=== PATIENT | female | born 1940 | race Caucasian/White ===

== ENCOUNTER → 2018-06-24 09:22 | Outpatient (BNVA) | payer MEDICARE, SELFPAY | PROVIDERS: PCP Nurse Practitioner Family; Visit Provider Psychiatry & Neurology Neurology | DX: R41.3 Other amnesia (principal); G20 Parkinson's disease; I10 Essential (primary) hypertension | CPT/HCPCS: 99214 ==

== ENCOUNTER → 2018-07-19 13:32 | Outpatient (BNVA) | payer MEDICARE, SELFPAY | PROVIDERS: PCP Nurse Practitioner Family; Visit Provider Nurse Practitioner Gerontology | DX: N39.498 Other specified urinary incontinence (principal); Z87.440 Personal history of urinary (tract) infections | CPT/HCPCS: 99213 ==

== ENCOUNTER → 2018-11-24 09:13 | Outpatient (BNVA) | payer MEDICARE, MEDICAID, SELFPAY | PROVIDERS: PCP Nurse Practitioner Family; Visit Provider Psychiatry & Neurology Neurology | DX: G20 Parkinson's disease (principal); R41.3 Other amnesia; I10 Essential (primary) hypertension | CPT/HCPCS: 99214 ==

== ENCOUNTER → 2019-02-24 10:35 | Outpatient (BNVA) | payer MEDICARE, MEDICAID, SELFPAY | PROVIDERS: PCP Nurse Practitioner Family; Visit Provider Psychiatry & Neurology Neurology | DX: G20 Parkinson's disease (principal); N39.0 Urinary tract infection, site not specified; L98.9 Disorder of the skin and subcutaneous tissue, unspecified; D22.9 Melanocytic nevi, unspecified; Z80.8 Family history of malignant neoplasm of other organs or systems | CPT/HCPCS: 99214 ==

== ENCOUNTER 2019-04-01 13:55 | Outpatient (REF) | payer MEDICARE, MEDICAID, SELFPAY ==
[2019-04-01 14:14] LABS: HCT 43.5 % (36.0-46.0); HGB 14.6 g/dL (12.0-15.5); Mean Corp. HGB Concentration 33.6 g/dL (32.0-36.0); Mean Corpuscular Hemoglobin 31.6 pg (27.0-33.0); Mean Corpuscular Volume 94.2 fL (80-95); Mean Platelet Volume 12.4 fL (8.0-11.0); Platelet Count 270 x1000/uL (130-400); RBC 4.62 m/cumm (4.00-5.20); RBC Distribution Width 12.8 % (11.7-14.6); White Blood Cell Count 6.84 k/cumm (4.4-10.8)
[2019-04-01 14:34] LABS: Iron 77 ug/dL (50-175); Total Iron Binding Capacity 313 ug/dL (250-450); Transferrin Sat 25 % (15-50)
[2019-04-01 23:39] LABS: Anion Gap 9.2 mmol/L (3-11); BUN 14 mg/dL (7-18); CO2 26.8 mmol/L (21.0-32.0); CREATININE 0.72 mg/dL (0.55-1.02); Calcium 9.4 mg/dL (8.5-10.1); Chloride 104 mmol/L (98-107); Glucose 132 mg/dL (70-100); Sodium 140 mmol/L (136-145); TSH (W/Ref FT4) 2.84 uIU/mL (0.358-3.74)
[2019-04-04 12:51] LABS: Lyme Ab w Rflx to Lyme Confirm Negative
[2019-04-04 12:53] LABS: Vitamin D 25 Total 14.1 ng/ml (30-100)
== END 2019-04-01 14:15 ==
LOC: NCHCN 13:55
PROVIDERS: PCP Nurse Practitioner Family; Visit Provider Nurse Practitioner Family
DX: I10 Essential (primary) hypertension (principal); R53.83 Other fatigue; E55.9 Vitamin D deficiency, unspecified; Z86.39 Personal history of other endocrine, nutritional and metabolic disease
CPT/HCPCS: 80048; 82306; 85027; 83540; 83550; 84443; 86618

== ENCOUNTER → 2019-05-23 12:41 | Outpatient (BNVA) | payer MEDICARE, MEDICAID, SELFPAY | PROVIDERS: PCP Nurse Practitioner Family; Visit Provider Psychiatry & Neurology Neurology | DX: G20 Parkinson's disease (principal); N39.0 Urinary tract infection, site not specified; D22.9 Melanocytic nevi, unspecified; R41.3 Other amnesia; K59.00 Constipation, unspecified; I10 Essential (primary) hypertension | CPT/HCPCS: 99213 ==

== ENCOUNTER → 2019-07-19 13:12 | Outpatient (BNVA) | payer MEDICARE, MEDICAID, SELFPAY | PROVIDERS: PCP Nurse Practitioner Family; Referring Provider Nurse Practitioner Family; Visit Provider Nurse Practitioner Gerontology | DX: Z87.440 Personal history of urinary (tract) infections (principal); R32 Unspecified urinary incontinence | CPT/HCPCS: 99213 ==

== ENCOUNTER → 2019-08-18 12:37 | Outpatient (BNVA) | payer MEDICARE, MEDICAID, SELFPAY | PROVIDERS: PCP Nurse Practitioner Family; Referring Provider Nurse Practitioner Family; Visit Provider Psychiatry & Neurology Neurology | DX: G20 Parkinson's disease (principal); N39.0 Urinary tract infection, site not specified; D22.9 Melanocytic nevi, unspecified; R41.3 Other amnesia | CPT/HCPCS: 99214 ==

== ENCOUNTER → 2019-09-19 15:03 | Outpatient (BNVA) | payer MEDICARE, MEDICAID, SELFPAY | PROVIDERS: PCP Nurse Practitioner Family; Referring Provider Nurse Practitioner Family; Visit Provider Nurse Practitioner Gerontology | DX: R32 Unspecified urinary incontinence (principal) | CPT/HCPCS: 99213 ==

== ENCOUNTER 2019-10-19 15:31 | Outpatient (CLI) | payer MEDICARE, MEDICAID, SELFPAY ==
--- NOTE | 2019-10-19 13:37 | DI.RAD_ITS ---
EXAM: XR SHOULDER LT COMPLETE 2+V INDICATION: Pain. COMPARISON: No exams were available for comparison TECHNIQUE: 2D digital imaging was performed. FINDINGS: There are degenerative changes seen at the acromioclavicular joint and the greater tuberosity. The g lenohumeral joint appears well maintained. The bones are intact and normally mineralized. Soft tiss ues are unremarkable. The bones appear osteopenic. IMPRESSION: Degenerative changes of the left shoulder.
== END 2019-10-19 15:51 ==
PROVIDERS: PCP Nurse Practitioner Family; Referring Provider Nurse Practitioner Family; Visit Provider Student in an Organized Health Care Education/Training Program
DX: M25.512 Pain in left shoulder (principal); M19.012 Primary osteoarthritis, left shoulder; M85.88 Other specified disorders of bone density and structure, other site; S46.012A Strain of muscle(s) and tendon(s) of the rotator cuff of left shoulder, initial encounter; M75.02 Adhesive capsulitis of left shoulder; W18.30XA Fall on same level, unspecified, initial encounter; I10 Essential (primary) hypertension; G20 Parkinson's disease
CPT/HCPCS: 99204; 99214; 73030

== ENCOUNTER → 2019-10-25 14:32 | Outpatient (BNVA) | payer MEDICARE, MEDICAID, SELFPAY | PROVIDERS: PCP Nurse Practitioner Family; Referring Provider Nurse Practitioner Family; Visit Provider Psychiatry & Neurology Neurology | DX: G20 Parkinson's disease (principal); R41.3 Other amnesia; I10 Essential (primary) hypertension | CPT/HCPCS: 99213 ==

== ENCOUNTER 2019-10-26 01:17 | Outpatient (CLI) | payer MEDICARE, MEDICAID, SELFPAY ==
--- NOTE | 2019-10-26 15:10 | DI.MRI_ITS ---
EXAM: MR UPPER JOINT LT WO CLINICAL HISTORY: Acute traumatic shoulder pain, weakness, stiffness, adhesive capsulitis,S46.012A,M 75.02 TECHNIQUE: Multiplanar multisequence MRI was performed. COMPARISON: XR SHOULDER LT COMPLETE 2+V from 10/19/2019 XR SHOULDER LT COMPLETE 2+V from 10/19/2019 FINDINGS: Supraspinatus tendon: There is a complete tear with retraction to the level of the glenohumeral joint . Infraspinatus tendon: There is a complete tear with retraction to the level of the glenohumeral joint . Teres minor tendon: Intact. Subscapularis tendon: There is thickening and increased signal seen within the subscapularis tendon s uggesting a partial tear. Biceps tendon: There is thickening and increased signal seen within the biceps tendon at the level of the anchor. This may represent a partial tear and/or tendinosis. Glenoid labrum: There is hyperintense signal beneath the anterior superior labrum suspicious for tear . Glenohumeral joint: There is a curvilinear, 8 mm., Hypointense focus in the anterior joint space. Th is may represent a displaced fracture fragment. A CT scan of the shoulder should be considered for f urther evaluation. Bones: Degenerative signal changes are seen at the acromioclavicular joint and the greater tuberosity . Soft tissues: There is fluid seen in the subcoracoid, subacromial and subdeltoid bursa. No soft tiss ue my is appreciated. Muscles: Moderately severe fatty atrophy is seen of the infraspinatus muscle. There is jdaq-oz-bwmbo ate fatty atrophy seen of the supraspinatus and teres minor muscles. Coracoclavicular ligaments: Intact. IMPRESSION: 1. Complete tears of both the supraspinatus and infraspinatus tendons with retraction. 2. Findings suspicious for tear/tendinosis of the subscapularis and biceps tendon as described above. 3. Findings suspicious for a tear of the superior labrum. 4. 8 mm focus in the anterior joint space. This may represent a displaced fracture fragment. CT scan should be considered for further evaluation. 5. Fatty atrophy involving supraspinatus, infraspinatus and teres minor muscles. 6. Degenerative changes in the shoulder.
== END 2019-10-26 01:37 ==
PROVIDERS: PCP Nurse Practitioner Family; Visit Provider Student in an Organized Health Care Education/Training Program
DX: M25.512 Pain in left shoulder (principal); M75.02 Adhesive capsulitis of left shoulder; S46.012A Strain of muscle(s) and tendon(s) of the rotator cuff of left shoulder, initial encounter; M75.102 Unspecified rotator cuff tear or rupture of left shoulder, not specified as traumatic; S43.432A Superior glenoid labrum lesion of left shoulder, initial encounter; M19.012 Primary osteoarthritis, left shoulder
CPT/HCPCS: 73221

== ENCOUNTER → 2020-01-25 07:47 | Outpatient (BNVA) | payer MEDICARE, MEDICAID, SELFPAY | PROVIDERS: PCP Nurse Practitioner Family; Referring Provider Nurse Practitioner Family; Visit Provider Psychiatry & Neurology Neurology | DX: G20 Parkinson's disease (principal); R41.3 Other amnesia; R39.15 Urgency of urination | CPT/HCPCS: 99213; 99441 ==

== ENCOUNTER → 2020-02-28 13:30 | Outpatient (BNVA) | payer MEDICARE, MEDICAID, SELFPAY | PROVIDERS: PCP Nurse Practitioner Family; Referring Provider Nurse Practitioner Family; Visit Provider Nurse Practitioner Gerontology | DX: R32 Unspecified urinary incontinence (principal) | CPT/HCPCS: 99213 ==

== ENCOUNTER 2020-04-05 12:49 | Outpatient (REF) | payer MEDICARE, MEDICAID, SELFPAY ==
[2020-04-05 15:53] LABS: ALT 17 U/L (14-59); AST 18 U/L (15-37); Albumin 3.8 g/dL (3.4-5.0); Alkaline Phosphatase 58 U/L (46-116); Anion Gap 9.6 mmol/L (3-11); BUN 22 mg/dL (7-18); Bilirubin, Total 0.7 mg/dL (0.2-1.0); CO2 26.4 mmol/L (21.0-32.0); CREATININE 0.82 mg/dL (0.55-1.02); Calcium 9.3 mg/dL (8.5-10.1); Chloride 105 mmol/L (98-107); Glucose 131 mg/dL (74-106); Potassium 3.9 mmol/L (3.5-5.1); Sodium 141 mmol/L (136-145); Total Protein 6.8 g/dL (6.4-8.2)
== END 2020-04-05 13:09 ==
LOC: NCHCN 12:49
PROVIDERS: PCP Nurse Practitioner Family; Visit Provider Nurse Practitioner
DX: G20 Parkinson's disease (principal); F03.90 Unspecified dementia, unspecified severity, without behavioral disturbance, psychotic disturbance, mood disturbance, and anxiety
CPT/HCPCS: 80053

== ENCOUNTER → 2020-04-25 09:19 | Outpatient (BNVA) | payer MEDICARE, MEDICAID, SELFPAY | PROVIDERS: PCP Nurse Practitioner Family; Referring Provider Nurse Practitioner Family; Visit Provider Psychiatry & Neurology Neurology | DX: G20 Parkinson's disease (principal); R41.3 Other amnesia; R39.15 Urgency of urination; I10 Essential (primary) hypertension | CPT/HCPCS: 99213; 99441 ==

== ENCOUNTER → 2020-07-18 15:06 | Outpatient (BNVA) | payer MEDICARE, MEDICAID, SELFPAY | PROVIDERS: PCP Nurse Practitioner Family; Referring Provider Nurse Practitioner Family; Visit Provider Nurse Practitioner Gerontology | DX: R32 Unspecified urinary incontinence (principal); I10 Essential (primary) hypertension; G20 Parkinson's disease | CPT/HCPCS: 99213 ==

== ENCOUNTER → 2020-07-26 10:15 | Outpatient (BNVA) | payer MEDICARE, MEDICAID, SELFPAY | PROVIDERS: PCP Nurse Practitioner Family; Referring Provider Nurse Practitioner Family; Visit Provider Psychiatry & Neurology Neurology | DX: G20 Parkinson's disease (principal); R41.3 Other amnesia; I10 Essential (primary) hypertension | CPT/HCPCS: 99214 ==

== ENCOUNTER → 2020-10-17 07:52 | Outpatient (BNVA) | payer MEDICARE, MEDICAID, SELFPAY | PROVIDERS: PCP Nurse Practitioner Family; Referring Provider Nurse Practitioner Family; Visit Provider Psychiatry & Neurology Neurology | DX: G20 Parkinson's disease (principal); R41.3 Other amnesia; F03.91 Unspecified dementia, unspecified severity, with behavioral disturbance | CPT/HCPCS: 99213 ==

== ENCOUNTER → 2020-11-14 07:57 | Outpatient (BNVA) | payer MEDICARE, MEDICAID, SELFPAY | PROVIDERS: PCP Nurse Practitioner Family; Referring Provider Nurse Practitioner Family; Visit Provider Psychiatry & Neurology Neurology | DX: G20 Parkinson's disease (principal); F03.91 Unspecified dementia, unspecified severity, with behavioral disturbance; R32 Unspecified urinary incontinence | CPT/HCPCS: 99212 ==

== ENCOUNTER → 2020-12-18 07:22 | Outpatient (BNVA) | payer MEDICARE, MEDICAID, SELFPAY | PROVIDERS: PCP Nurse Practitioner Family; Referring Provider Nurse Practitioner Family; Visit Provider Psychiatry & Neurology Neurology | DX: G20 Parkinson's disease (principal); F03.91 Unspecified dementia, unspecified severity, with behavioral disturbance; R32 Unspecified urinary incontinence | CPT/HCPCS: 99213 ==

== ENCOUNTER → 2021-01-31 07:47 | Outpatient (BNVA) | payer MEDICARE, MEDICAID, SELFPAY | PROVIDERS: PCP Nurse Practitioner Family; Referring Provider Nurse Practitioner Family; Visit Provider Psychiatry & Neurology Neurology | DX: G20 Parkinson's disease (principal); F03.91 Unspecified dementia, unspecified severity, with behavioral disturbance; R32 Unspecified urinary incontinence; Z79.899 Other long term (current) drug therapy | CPT/HCPCS: 99442 ==

== ENCOUNTER 2021-02-20 12:39 | Outpatient (REF) | payer OTHER, MEDICAID, SELFPAY ==
[2021-02-20 12:58] LABS: Bilirubin Negative (Negative); Blood Negative (Negative); Clarity Clear (Clear); Glucose Negative (Negative); Ketones Negative (Negative); Leukocyte Esterase Negative (Negative); Nitrite Negative (Negative); Urobilinogen 0.2 EU/dL (Up TO 0.2)
== END 2021-02-20 12:40 | disposition home or self-care (01) ==
LOC: LBN 12:39
PROVIDERS: PCP Nurse Practitioner Family; Visit Provider Psychiatry & Neurology Neurology
DX: R30.0 Dysuria (principal)
CPT/HCPCS: 81003

== ENCOUNTER 2021-02-25 18:42 | Outpatient (CLI) | payer OTHER, MEDICAID, SELFPAY ==
--- NOTE | 2021-02-22 | DI.RAD_ITS ---
Exam(s) XR KNEE LT 3V AP,LAT,SWATI EXAM: XR KNEE LT 3V AP,LAT,SWATI CLINICAL HISTORY: LT KNEE PAIN, M25.562 TECHNIQUE: COMPARISON: No exams were available for comparison FINDINGS: Four views were obtained. There are very prominent hypertrophic degenerative changes of the joints o f the knee. There is severe narrowing of the cartilaginous joint space of the patellofemoral joint l aterally, and also of the medial tibiofemoral joint. There is medial subluxation of the femur on the tibia. There is lateral subluxation of the patella. There is an apparent nondisplaced fracture of the proximal fibula involving the proximal diaphysis. IMPRESSION: Severe degenerative changes, nondisplaced proximal diaphyseal fibular fracture. RADIATION DOSE DELIVERED: Total DLP
--- NOTE | 2021-02-22 | DI.RAD_ITS ---
Exam(s) XR FOOT LT COMPLETE EXAM: XR FOOT LT COMPLETE CLINICAL HISTORY: LT FOOT PAIN, M79.672 TECHNIQUE: COMPARISON: No exams were available for comparison FINDINGS: Three views of the foot were obtained. There are degenerative changes involving essentially all the joints of the foot. Fracture of the distal fibula noted with mild displacement. Additionally, there is lucency and deformity of the base of the 2nd metatarsal as well as probably the 3rd and 4th metat arsals raising the possibility of multiple metatarsal fractures. Additional evaluation with CT recom mended to evaluate midfoot injury. IMPRESSION: RADIATION DOSE DELIVERED: Total DLP
--- NOTE | 2021-02-22 | DI.RAD_ITS ---
Exam(s) XR TIB/FIB LT XR ANKLE LT COMPLETE EXAM: XR TIB/FIB LT CLINICAL HISTORY: LT LEG PAIN, M79.605 TECHNIQUE: COMPARISON: CR XR ANKLE LT COMPLETE from 02/22/2021 FINDINGS: Two views of the leg and three views of the ankle were obtained. There is a nondisplaced proximal fi bular diaphyseal fracture. There is a fracture of the distal fibula with mild displacement. The ank le mortise appears well maintained. The posterior aspect of the tibia is not well visualized but no definite fracture of the tibia is identified. IMPRESSION: RADIATION DOSE DELIVERED: Total DLP
--- NOTE | 2021-02-22 | DI.US_ITS ---
Exam(s) US LOWER EXTREMITY VENOUS LT EXAM: US LOWER EXTREMITY VENOUS LT CLINICAL HISTORY: LT CALF PAIN, M79.652. TECHNIQUE: Ultrasound performed using standard protocol. COMPARISON: No exams were available for comparison FINDINGS: Duplex venous ultrasound was performed according to the usual protocol. The deep veins are freely com pressible throughout and there is normal flow augmentation with manual calf compression. 2D and Doppl er evaluation are unremarkable. IMPRESSION: No evidence of deep venous thrombosis of the left lower extremity. DATA REPOSITORY:
--- NOTE | 2021-02-22 13:30 | DI.CT_ITS ---
Exam(s) CT LOWER EXTREMITY LT WO EXAM: CT LOWER EXTREMITY LT WO CLINICAL HISTORY: LT FOOT PAIN, M79.672 TECHNIQUE: COMPARISON: No exams were available for comparison FINDINGS: CT examination of the foot was performed utilizing multi slice acquisition multi planar reconstructio n. Today's radiographs showed fractures of proximal and distal fibula and suspected fractures of the bases of the 2nd through 4th metatarsals. CT again shows the mildly displaced fracture of the distal fibular diaphyseal metaphyseal junction. Ankle mortise appears fairly well maintained, mild widening of tibiofibular joint noted. There is a longitudinal fracture through the midportion of the navicular bone which is nondisplaced. There are fractures of the bases of the 2nd through 5th metatarsals. There is probable tiny avulsion of the lateral aspect the medial cuneiform presumably associated with Lisfranc ligament avulsion. T here is mild widening of the joint between the medial cuneiform and the base of the 2nd metatarsal an d mild widening of 1st metatarsal 2nd metatarsal joint. No other significant joint widening or displ acement seen in the metatarsal region. No additional cuneiform injury identified. IMPRESSION: Lisfranc type fracture as described above, this involves medial cuneiform and 2nd through 5th metatar bri bases. Additionally there is a longitudinally oriented nondisplaced navicular bone fracture. Also again not ed as seen on plain film is a fracture of the distal fibula. RADIATION DOSE DELIVERED: 332.06mGy.cm Total DLP RADIATION OPTIMIZATION: All CT scans at this facility use at least one of these dose optimization te chniques: automated exposure control; mA and/or kV adjustment per patient size (includes targeted exa ms where dose is matched to clinical indication); or iterative reconstruction.
== END 2021-02-25 19:02 ==
PROVIDERS: PCP Nurse Practitioner Family; Visit Provider Physician Assistant Medical
DX: M79.605 Pain in left leg; M25.572 Pain in left ankle and joints of left foot; M79.672 Pain in left foot; S82.832A Other fracture of upper and lower end of left fibula, initial encounter for closed fracture; M17.12 Unilateral primary osteoarthritis, left knee; S92.255A Nondisplaced fracture of navicular [scaphoid] of left foot, initial encounter for closed fracture; S92.325A Nondisplaced fracture of second metatarsal bone, left foot, initial encounter for closed fracture; S92.335A Nondisplaced fracture of third metatarsal bone, left foot, initial encounter for closed fracture; S92.345A Nondisplaced fracture of fourth metatarsal bone, left foot, initial encounter for closed fracture; S92.355A Nondisplaced fracture of fifth metatarsal bone, left foot, initial encounter for closed fracture; S92.225A Nondisplaced fracture of lateral cuneiform of left foot, initial encounter for closed fracture; X58.XXXA Exposure to other specified factors, initial encounter
CPT/HCPCS: 73562; 73590; 73610; 73630; 73700; 93971

== ENCOUNTER 2021-02-26 14:00 | Outpatient (CLI) | payer OTHER, MEDICAID, SELFPAY | END 2021-02-26 14:01 | LOC: OCO 03-08 07:11 | PROVIDERS: PCP Nurse Practitioner Family; Visit Provider Physician Assistant | DX: S82.832A Other fracture of upper and lower end of left fibula, initial encounter for closed fracture (principal); S92.202A Fracture of unspecified tarsal bone(s) of left foot, initial encounter for closed fracture; W19.XXXA Unspecified fall, initial encounter | CPT/HCPCS: 99213 ==

== ENCOUNTER → 2021-03-14 07:26 | Outpatient (BNVA) | payer OTHER, MEDICAID, SELFPAY | PROVIDERS: PCP Nurse Practitioner Family; Referring Provider Nurse Practitioner Family; Visit Provider Psychiatry & Neurology Neurology | DX: G20 Parkinson's disease (principal); F03.91 Unspecified dementia, unspecified severity, with behavioral disturbance; R32 Unspecified urinary incontinence | CPT/HCPCS: 99213 ==

== ENCOUNTER 2021-04-01 14:58 | Outpatient (CLI) | payer OTHER, MEDICAID, SELFPAY ==
--- NOTE | 2021-04-01 14:49 | DI.RAD_ITS ---
Exam(s) XR FOOT LT COMPLETE EXAM: XR FOOT LT COMPLETE CLINICAL HISTORY: fx. TECHNIQUE: 2D digital imaging was performed. COMPARISON: CR XR FOOT LT COMPLETE from 02/22/2021 FINDINGS: Lisfranc joint fractures again noted involving the 2nd through 5th metatarsal bases, inclusive as wel l as the medial cuneiform, as best seen on recent CT scan. The AP view here is somewhat less than op timal for adequately assess in the main Lisfranc joint space. This related to angulation. Dorsal be ak off the distal navicular bone pointing distally is again noted. This is probably a small osteocho ndroma. There is a fracture of the navicular bone noted, as was previously present. Inferior calcan eal spur is noted as is calcification in the subjacent plantar fascia. IMPRESSION: No obvious further displacement at the multiple Lisfranc and navicular fracture sites. Also again no robert is a fracture of the distal fibula. DATA REPOSITORY: RADIATION DOSE DELIVERED:
--- NOTE | 2021-04-01 14:54 | DI.RAD_ITS ---
Exam(s) XR ANKLE LT COMPLETE EXAM: XR ANKLE LT COMPLETE CLINICAL HISTORY: fx. TECHNIQUE: 2D digital imaging was performed. COMPARISON: CR XR ANKLE LT COMPLETE from 02/22/2021 FINDINGS: The oblique fracture in the distal fibula is still evident. No obvious callus formation. No further widening of the mortise. Small calcific density subjacent to the medial malleolus is also again whi ch is probably related to avulsion injury. Talar dome exhibits a degenerative subarticular cyst in i ts medial aspect. The lateral view there is calcification in the plantar fascia noted. There is als o a calcific density noted anteriorly in the ankle joint region seen on the lateral view, more so sulma n previous. IMPRESSION: DATA REPOSITORY: RADIATION DOSE DELIVERED:
== END 2021-04-01 14:59 | disposition home or self-care (01) ==
LOC: DIORS 14:59
PROVIDERS: PCP Nurse Practitioner Family; Referring Provider Nurse Practitioner Family; Visit Provider Physician Assistant
DX: S82.832D Other fracture of upper and lower end of left fibula, subsequent encounter for closed fracture with routine healing (principal); X58.XXXD Exposure to other specified factors, subsequent encounter; S92.325D Nondisplaced fracture of second metatarsal bone, left foot, subsequent encounter for fracture with routine healing; S92.335D Nondisplaced fracture of third metatarsal bone, left foot, subsequent encounter for fracture with routine healing; S92.345D Nondisplaced fracture of fourth metatarsal bone, left foot, subsequent encounter for fracture with routine healing; S92.355D Nondisplaced fracture of fifth metatarsal bone, left foot, subsequent encounter for fracture with routine healing; S92.245D Nondisplaced fracture of medial cuneiform of left foot, subsequent encounter for fracture with routine healing
CPT/HCPCS: 99213; 73610; 73630

== ENCOUNTER → 2021-04-18 10:15 | Outpatient (BNVA) | payer OTHER, MEDICAID, SELFPAY | PROVIDERS: PCP Nurse Practitioner Family; Referring Provider Nurse Practitioner Family; Visit Provider Psychiatry & Neurology Neurology | DX: G20 Parkinson's disease (principal); F03.91 Unspecified dementia, unspecified severity, with behavioral disturbance; R32 Unspecified urinary incontinence | CPT/HCPCS: 99214 ==

== ENCOUNTER → 2021-05-20 10:38 | Outpatient (BNVA) | payer OTHER, MEDICAID, SELFPAY | PROVIDERS: PCP Nurse Practitioner Family; Referring Provider Nurse Practitioner Family; Visit Provider Student in an Organized Health Care Education/Training Program | DX: S82.832D Other fracture of upper and lower end of left fibula, subsequent encounter for closed fracture with routine healing (principal); X58.XXXD Exposure to other specified factors, subsequent encounter | CPT/HCPCS: 99212 ==

== ENCOUNTER → 2021-06-20 07:32 | Outpatient (BNVA) | payer OTHER, MEDICAID, SELFPAY | PROVIDERS: PCP Nurse Practitioner Family; Referring Provider Nurse Practitioner Family; Visit Provider Psychiatry & Neurology Neurology | DX: G20 Parkinson's disease (principal); F03.91 Unspecified dementia, unspecified severity, with behavioral disturbance; R32 Unspecified urinary incontinence | CPT/HCPCS: 99214 ==

== ENCOUNTER 2021-09-14 13:23 | Outpatient (REF) | payer OTHER, MEDICAID, SELFPAY | END 2021-09-14 13:24 | disposition home or self-care (01) | LOC: LBN 13:23 | PROVIDERS: PCP Nurse Practitioner Family; Visit Provider Nurse Practitioner Family | DX: N39.0 Urinary tract infection, site not specified (principal) | CPT/HCPCS: 87077; 87086; 87186 ==

== ENCOUNTER 2021-09-15 14:33 | Emergency (ER) | payer OTHER, MEDICAID, SELFPAY ==
[2021-09-15] VITALS (22 sets, daily range): BP systolic 111–147; BP diastolic 48–89; PULSE 51–66; RESP 12–22; TEMP 36; O2SAT 90–99
--- NOTE | 2021-09-15 14:30 | RT.EKG_ITS ---
APPROVED REPORT Exam: Resting ECG Reason for Exam: Trauma Patient Location: E HR:59 bpm ECG Measurements Heart Rate 59 AXIS RI 236 P 58 QRSd 117 QRS 52 QT 506 T [id number] QTc 501 Conclusion Sinus bradycardia...rate< 60 Prolonged RI interval...RI >220, V-rate 50- 90 Nonspecific intraventricular conduction delay...QRSd >115mS, not LBBB/RBBB Low voltage, extremity leads...all extremity leads <0.5mV Anteroseptal infarct, old...Q >40mS, V1-V2 Nonspecific T abnormalities, lateral leads...T <-0.10mV, I aVL V5 V6 Prolonged QT interval...QTc >500mS
--- NOTE | 2021-09-15 14:45 | DI.CT_ITS ---
Exam(s) CT HEAD CERV SPINE FACIAL WO EXAM: CT HEAD CERV SPINE FACIAL WO CLINICAL HISTORY: fall, pain. TECHNIQUE: Imaging Protocol: Axial computed tomography images with coronal and sagittal reformatted images were created and reviewed COMPARISON: CT HEAD WITHOUT CONTRAST from 10/21/2013 FINDINGS: CT Head: Ventricles and Extra axial spaces: Normal in size and morphology for the patient's age. Hemorrhage: None. Cerebral parenchyma: No acute territorial infarct. There are areas of decreased attenuation in the w nicolas matter most consistent with small vessel ischemic disease. Midline shift: None. Brainstem/Cerebellum: Normal. Calvarium: Normal. Visualized Paranasal sinuses/Mastoids: Clear. Soft Tissues: Left periorbital soft tissue swelling. CT Face: Facial Bones: No definite fracture is noted in facial bones. The nasal septum deviates to the right. There is a spur arising from the right aspect of the nasal septum. There is left middle turbinate tyrone bullosa. The ostiomeatal complexes are unremarkable. Sinuses and Mastoids: Unremarkable. Globes, extraocular muscles, optic nerves and retrobulbar fat: Normal. Upper aerodigestive tract: Normal. Mandible and bilateral temporomandibular joints: Normal. Soft tissues: Soft tissue swelling in the left periorbital region and overlying the left frontal bone . CT Cervical Spine: Bones: No acute fracture or subluxation. Multilevel degenerative changes are present throughout the c ervical spine. Soft Tissues: Unremarkable. 1.7 cm nodule in the right thyroid gland. Lung Apices: Clear. IMPRESSION: 1. No acute intracranial process. 2. No acute fracture or subluxation in the cervical spine. 3. 1.7 cm right thyroid nodule. 4. No acute facial fracture. Incidental Findings In patients >18 years with an incidental thyroid nodule (ITN) detected on CT,MRI, or extrathyroidal u ltrasound, no further evaluation is recommended if the nodule is 1 cm or less and has no suspicious i maging features. In patients<35 years with an (ITN) detected on CT, MRI, or extrathyroidal ultrasound, further evaluat ion with dedicated thyroid ultrasound is recommended if the nodule > 1 cm and has no suspicious imaga ing features, and if the patient has normal life expectancy. In patients >35 years with an ITN detected on CT MRI or extrathyroidal ultrasound, further evaluation with dedicated thyroid ultrasound is recommended if the nodule is > 1.5 cm and has no suspicious haja ging features, and if the patient has normal life expenctancy. (LILIAN, 2009 and ACR, 2014) RADIATION DOSE DELIVERED: 2,015.1mGy.cm Total DLP DATA REPOSITORY: All CT scans at this facility are submitted to the National Radiology Data Registry (NRDR) Dose Index Registry (DIR) with the [employer] (A[employer]). RADIATION OPTIMIZATION: All CT scans at this facility use at least one of these dose optimization te chniques: automated exposure control; mA and/or kV adjustment per patient size (includes targeted exa ms where dose is matched to clinical indication); or iterative reconstruction.
--- NOTE | 2021-09-15 14:53 | ED.GENADUL_ITS ---
Discharge Plan Disposition Patient Disposition: HOME Condition: Stable Discharge Details Clinical Impression: Fall, Laceration of face Primary Care Provider: Ludmila Go ED Provider: Arcenio Waldron Home Meds and New Rx's Prescriptions: Continued sertraline [Zoloft] 100 mg tablet 100 mg PO DAILY RF: 0 donepezil 10 mg tablet 20 mg PO DAILY Qty: 180 RF: 3 carbidopa-levodopa 25-250 mg tablet 1 tab PO TID Qty: 270 RF: 3 (DME) wheelchair 1 EACH device 1 ea Miscellaneous RF: 0 omeprazole 20 MG capsule,delayed release(DR/EC) 20 mg PO DAILY RF: 0 mirtazapine 7.5 MG tablet 7.5 mg PO HS RF: 0 fluticasone propionate [Flonase Allergy Relief] 50 mcg/actuation spray,suspension 1 spray DONIS BID RF: 0 aspirin [Aspir-81] 81 MG tablet,delayed release (DR/EC) 81 mg PO DAILY RF: 0 carbidopa-levodopa 50-200 mg tablet extended release 1 tab PO HS RF: 0 Myrbetriq 50 mg tablet extended release 24 hr 25 mg PO DAILY RF: 0 Discharge Instructions Instructions: Facial Laceration (ED) Additional Instructions: your blood work and cat scans did not show concerning findings have the wound evaluated in 7-10 days for possible suture removal if you feel more ill, have severe worsening pain, spreading redness from the wound return to the emergency department Medical Decision Making 80 yo female with history of dementai, parkinsons, comes in with ems after a fall and struck her head on a bureau. She states she is not sure entirely how she fell but remembers the fall and the process of falling to the ground, doesn't believe she lost consciousness. She denies cheset pain, abdominal pain, dyspnea. She has a 5cm c shaped laceration to the left forehead, some pain in the mid face with no visbile abnormalities or epistaxis. no chest or abodminal tenderness. Is moving all of her extremities with no pain. Given mechanism will obtain labs to evaluate for anemia, electrolyte abnormalities and obtain ct head/face/c spine imaging and labs unremarkable, cleared her c spine clinically after negative ct, no midline pain. Closed her wound without issues, spoke with her daughter and she is comfortable taking her home, she has palliative care going to her house and has wheelchair and other services. Return precautions given Differential Diagnosis Differential Diagnosis: tbi, concussion, syncope Medical Records Medical records reviewed: Yes I reviewed the patient's medical records. Lab Data Lab results reviewed: Yes I reviewed the patient's lab results. ECG Data Attestation: I personally reviewed and interpreted this ECG (s) as follows: Prior ECG tracings: not available for review Interpretation: sinus bradyacardia, rate of 59, pr 236, no acute st t wave ischemic findings HPI General Mode of arrival: EMS . Date/Time Provider Initiated Documentation: 09/15/21 14:40 . Information obtained by: patient and EMS . History of Present Illness 80 year old F presents to the emergency department with the chief complaint of fall, described as moderate, and is localized to the head. Patient reports no radiation. Patient started experiencing this hour(s) (1) and it has been constant. No relieving factors improve symptom(s), No exacerbating factors reported . Patient notes no other symptoms.. Patient did receive the following treatments prior to arrival, none Related Data Home Medications Medication Instructions Recorded Confirmed wheelchair 06/26/15 09/05/21 aspirin [Aspir-81] 81 mg PO DAILY 07/05/15 09/15/21 omeprazole 20 mg PO DAILY tab-cap 03/12/16 09/15/21 mirtazapine 7.5 mg PO HS tab-cap 02/05/17 09/15/21 fluticasone propionate 50 1 spray DONIS BID 10/11/19 09/15/21 mcg/actuation nasal spray,suspension sertraline 100 mg tablet 100 mg PO DAILY 12/18/20 09/15/21 donepezil 10 mg tablet 20 mg PO DAILY #180 tab 01/31/21 09/15/21 carbidopa 25 mg-levodopa 250 mg 1 tab PO TID #270 tab 03/14/21 09/15/21 tablet Myrbetriq 25 mg PO DAILY 09/15/21 09/15/21 carbidopa-levodopa 1 tab PO HS 09/15/21 09/15/21 Previous Rx's Medication Instructions Recorded donepezil 10 mg tablet 20 mg PO DAILY #180 tab 01/31/21 carbidopa 25 mg-levodopa 250 mg 1 tab PO TID #270 tab 03/14/21 tablet Allergies Allergy/AdvReac Type Severity Reaction Status Date / Time pseudoephedrine HCl Allergy Intermediate Skin Rash Verified 09/15/21 14:39 [From Sudafed] Sulfa (Sulfonamide Allergy Intermediate Skin Rash Verified 09/15/21 14:39 Antibiotics) amitriptyline Allergy Unknown per PCP Unverified 09/15/21 15:22 record lisinopril AdvReac cough Verified 09/15/21 14:39 General Stated Complaint: Trauma SONIA: 2 Review of Systems All systems reviewed & are unremarkable except as noted in HPI and below Constitutional Constitutional: Denies chills and Denies fever(s) Cardiovascular Cardiovascular: Denies chest pain and Denies dyspnea Respiratory Respiratory: Denies cough and Denies dyspnea Gastrointestinal Gastrointestinal: Denies abdominal pain, Denies nausea and Denies vomiting Musculoskeletal Musculoskeletal: Denies joint swelling PFSH All Active Problems (Updated 09/15/21 @ 16:11 by Arcenio Waldron MD) Fall (Acute) Laceration of face (Acute) Left fibular fracture (Acute) Lisfranc fracture (Acute) Dysuria (Acute) Dementia with behavioral disturbance (Acute) Parkinsons (Chronic) Adhesive capsulitis of left shoulder (Acute ~09/2019) Left rotator cuff tear (Acute ~09/2019) Prediabetes (Acute) Right knee DJD (Acute) Carpal tunnel syndrome on left (Acute) Back pain, chronic (Acute) Foot pain (Acute) Shoulder pain, left (Acute) Colon cancer screening (Acute) Preventative health care (Acute) UTI (urinary tract infection) (Acute) Dementia (Chronic) Fatigue (Acute) History of vitamin D deficiency (Acute) Memory loss (Chronic) Depression (Chronic) Hyperlipidemia (Chronic) Hypertension (Chronic) Urinary incontinence (Chronic 01/27/18) Osteoarthritis of knee (Chronic 03/09/14) Constipation (Chronic 07/19/15) Medical History (Updated 09/15/21 @ 16:11 by Arcenio Waldron MD) 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; Surgical History History of total right knee replacement Open Carpal Tunnel release Bilateral S/P appendectomy Status post Mohs surgery for squamous cell carcinoma of skin 05/13/19 Family History Daughter Diabetes Daughter Diabetes Social History Smoking/Tobacco Use Status: Never Smoking risk assessment performed?: Yes Alcohol Intake: never Drug use: Never Household members: spouse Housing: house Number of Children: 5 number of grandchildren: 3 Pets and animals: Yes Pets and animals: dog(s) Current gender identity: female What is your relationship status?: Panel score (0-1 are the most socially isolated patients): 1 Seatbelt use: always Additional Social history: She is and lives her . Her daughter Mellissa lives down the street. She was a homemaker. No smoking, ETOH, or illicit drug use. Exam Const General: no acute distress Orientation: alert HENMT Head: no palpable skull fracture Ears: external ears normal General nose exam: external nose normal Mouth: moist mucous membranes Eyes General: appearance normal, both eyes and all related structures Neck Neck: normal visual inspection Resp Effort & Inspection: normal respiratory effort and able to speak in complete sentences Cardio Rate: regular rate GI Palpation: soft and nontender Skin General skin exam: no rashes or lesions noted Neuro General: patient alert and patient oriented x3 Extrem General: normal to inspection Psych Mental Status: mental status grossly normal Course Vital Signs Vital signs: Vital Signs Temperature 36 C L 09/15/21 14:32 Pulse 60 09/15/21 14:32 Respiratory Rate 20 09/15/21 14:32 Blood Pressure 116/89 09/15/21 14:32 Pulse Oximetry 97 09/15/21 14:32 Temperature 36 C L 09/15/21 14:32 Temperature Source Skin 09/15/21 14:32 Pulse 60 09/15/21 14:32 Respiratory Rate 20 09/15/21 14:32 Respiratory Effort 09/15/21 14:32 Blood Pressure 116/89 09/15/21 14:32 Blood Pressure Position Supine 09/15/21 14:32 Pulse Oximetry 97 09/15/21 14:32 Oxygen Delivery Method Room Air 09/15/21 14:32 Oxygen Flow Rate 0 09/15/21 14:32 Pain Level 5 09/15/21 14:32 Procedures Laceration Laceration 1: Site: face Side (If applicable): left Size (cm): 5 Description: flap Depth: simple, single layer Local Anesthetic: other anesthetic (topical lidocaine/epi/tetracaine) Pre-repair: wound explored and irrigated extensively Skin layer closed with: nylon Size (cm): 4-0 Number of sutures: 5 Technique: simple, interrupted
[2021-09-15 14:59] LABS: Abs Immature Grans 0.02 10^3/uL (0.0-0.06); Absolute Basophil Count 0.04 10^3/uL (0.0-0.2); Absolute Eosinophil Count 0.11 10^3/uL (0.0-0.7); Absolute Lymphocyte Count 1.28 10^3/uL (1.2-3.4); Absolute Monocyte Count 0.76 10^3/uL (0.1-0.8); Absolute Neutrophil Count 4.93 10^3/uL (1.2-6.7); Basophils % 0.6; Eosinophils % 1.5; HCT 43.2 % (36.0-46.0); HGB 13.7 g/dL (11.2-15.7); Immature Grans % 0.3; Lymphocytes % 17.9; MCH 30.4 pg (27.0-33.0); MCHC 31.7 % (32.0-36.0); MPV 11.2 fL (8.0-11.0); Monocytes % 10.6; Neutrophils % 69.1; Nucleated RBC 0 %; Platelet Count 231 10^3/uL (130-400); RDW 12.9 % (11.7-14.6); RDW-SD 46.5 fL; WBC 7.14 10^3/uL (4.4-10.8)
[2021-09-15] MEDS: Lidocaine/Epinephri/Tetracaine Topical Gel 3 ML TP (15:10)
[2021-09-15] MEDS: Lidocaine/Epinephri/Tetracaine Topical Gel 3 ML (15:10)
[2021-09-15 15:15] LABS: ALT 8 U/L (14-59); AST 12 U/L (15-37); Albumin 3.2 g/dL (3.4-5.0); Alkaline Phosphatase 58 U/L (46-116); Anion Gap 5.4 mmol/L (3-11); BUN 26 mg/dL (7-18); Bilirubin, Total 0.5 mg/dL (0.2-1.0); CO2 29.6 mmol/L (21.0-32.0); CREATININE 0.8 mg/dL (0.55-1.02); Calcium 8.6 mg/dL (8.5-10.1); Chloride 107 mmol/L (98-107); Glucose 125 mg/dL (74-106); Potassium 3.6 mmol/L (3.5-5.1); Sodium 142 mmol/L (136-145); Total Protein 6.4 g/dL (6.4-8.2); Troponin I < 0.05 ng/mL (<0.06)
--- NOTE | 2021-09-15 15:25 | DI.VRAD_ITS ---
PROCEDURE INFORMATION: Exam: CT Head Without Contrast Exam date and time: 09/15/2021 2:49 PM Age: 80 years old Clinical indication: Injury or trauma; Fall; Blunt trauma (contusions or hematomas); Forehead TECHNIQUE: Imaging protocol: Computed tomography of the head without contrast. COMPARISON: 1. MRI - BRAIN W CONTRAST 08/13/2015 4:01 PM 2. MRI - BRAIN WO CONTRAST 07/18/2015 4:22:00 PM FINDINGS: Brain: No CT evidence of acute transcortical infarction. No acute intracranial hemorrhage, edema, midline shift, or mass effect. Mild progression of chronic small vessel ischemic disease. Cerebral ventricles: No ventriculomegaly. Paranasal sinuses: Visualized sinuses are unremarkable. No fluid levels. Mastoid air cells: Visualized mastoid air cells are well aerated. Vasculature: Arteriosclerotic calcifications of the intracranial internal carotid and vertebral arteries. Bones/joints: Unremarkable. No acute fracture. Soft tissues: Mild soft tissue swelling and minimal subcutaneous emphysema of the left frontal scalp, with a bandage in place. IMPRESSION: Findings consistent with laceration and contusion of the left frontal scalp. No underlying calvarial fracture or acute intracranial hemorrhage. PROCEDURE INFORMATION: Exam: CT Maxillofacial Without Contrast Exam date and time: 09/15/2021 2:49 PM Age: 80 years old Clinical indication: Injury or trauma; Fall; Blunt trauma (contusions or hematomas); Forehead TECHNIQUE: Imaging protocol: Computed tomography images of the face without contrast. COMPARISON: 1. MRI - BRAIN W CONTRAST 08/13/2015 4:01 PM 2. MRI - BRAIN WO CONTRAST 07/18/2015 4:22:00 PM FINDINGS: Orbital cavity: Status post bilateral lens replacement surgery. Bones/joints: Rightward nasal septal deviation with a rightward directed nasal septal spur. No maxillofacial bone fracture is appreciated. [id number] degenerative changes of the temporomandibular joints. Paranasal sinuses: Normal. No air-fluid levels. Soft tissues: Unremarkable. Nasal cavity: Left tyrone bullosa. IMPRESSION: No maxillofacial bone fracture is appreciated. PROCEDURE INFORMATION: Exam: CT Cervical Spine Without Contrast Exam date and time: 09/15/2021 2:49 PM Age: 80 years old Clinical indication: Injury or trauma; Fall; Blunt trauma (contusions or hematomas); Forehead TECHNIQUE: Imaging protocol: Computed tomography images of the cervical spine without contrast. COMPARISON: No relevant prior studies available. FINDINGS: Bones/joints: No evidence of acute cervical spine fracture or subluxation. Discs/Spinal canal/Neural foramina: Diffuse degenerative changes of the cervical spine, with [id number] spinal canal stenosis at C3-C4 through C7-T1. Bony neural foraminal narrowing is greatest on the right at C5-C6. Thyroid: Dominant nodule of the right thyroid measures 1.7 cm. Lungs: Lung apices are normal. Soft tissues: Unremarkable. IMPRESSION: 1. No evidence of acute cervical spine fracture or subluxation. 2. Diffuse degenerative changes of the cervical spine. 3. Dominant nodule of the right thyroid. By ACR guidance, further evaluation with ultrasound is recommended. Dictated and Authenticated by: Donte Montemayor MD. Ordering:PRASAD Rg MD
== END 2021-09-15 16:48 | disposition home or self-care (01) ==
PROVIDERS: Emergency Provider Emergency Medicine; PCP Nurse Practitioner Family
DX: S01.81XA Laceration without foreign body of other part of head, initial encounter (principal); W18.39XA Other fall on same level, initial encounter; R21 Rash and other nonspecific skin eruption; R51.9 Headache, unspecified
CPT/HCPCS: 12013; 36415; 80053; 90471; 93005; 99284; 70450; 70486; 72125; 83735; 84484; 85025; 93010; 99283

== ENCOUNTER 2021-10-10 19:23 | Outpatient (REF) | payer MEDICARE, MEDICAID, SELFPAY ==
[2021-10-12 10:21] LABS: COVID-19 RT-PCR UVMMC Result Negative (Negative)
== END 2021-10-10 19:24 | disposition home or self-care (01) ==
LOC: LBN 19:23
PROVIDERS: PCP Nurse Practitioner Family; Visit Provider Nurse Practitioner Family
DX: Z20.822 Contact with and (suspected) exposure to COVID-19 (principal)
CPT/HCPCS: U0003